=== PATIENT | female | born 1965 | race Caucasian/White ===

== ENCOUNTER → 2016-12-02 | Day surgery (SDC) | payer OTHER ==
[~2016-12-02] MED LIST: CALC200T3 PO; FENTANYL PF 100 MCG/2 ML VIAL. IV PRN; IBUP100O7 PO; IV RINGERS,LACTATED 1000ML 1,000 ML IV SCH; LIDOCAINE 1% 1 ML SYRINGE. ID PRN; LIDOCAINE 2% PF Vial for OR 5 ML VIAL. ONE; LISI-334 PO; MIDAZOLAM HCL 2 MG/2 ML VIAL. IV PRN; MULT1TAB6 PO; PANT40TA5 PO; PROPOFOL 40 ML IV ONE
[2016-12-02 15:09] VITALS: BP 180/80
--- NOTE | 2016-12-02 21:16 | HP ---
ADMIT DATE: 12/02/2016 REFERRING PHYSICIAN: Allyson Landaverde MD HISTORY OF PRESENT ILLNESS: A 51-year-old male with past medical history significant for anxiety, depression, reflux, fibromyalgia, hyperlipidemia, palpitations, peptic ulcer disease, seen with heme-positive stools. He has also noticed some bright red blood per rectum over the past several weeks which last a week at a time without pain. There has been no change in bowel habits, diarrhea, constipation, change in weight or appetite. No family history of colon cancers noted. He has had a colonoscopy approximately 3 years ago, which was unrevealing at that time. With continued symptoms, he requests additional evaluation. PAST MEDICAL HISTORY: Significant for anxiety, reflux, hypertension and hyperlipidemia. ALLERGIES: None. MEDICATIONS: Calcium, ibuprofen, lisinopril and pantoprazole. PAST SURGICAL HISTORY: Status post hiatal hernia surgery, tonsillectomy and tubal ligation. REVIEW OF SYSTEMS: Per old records. PHYSICAL EXAMINATION: GENERAL: Reveals a well-nourished, well-developed female who is alert, conversant, in no acute distress. VITAL SIGNS: Temperature 98.5, pulse 90, respiratory rate is 18. HEENT: Normocephalic and atraumatic head. Pupils and extraocular muscles not tested. Sclerae anicteric. NECK: Supple. LUNGS: Clear. CARDIOVASCULAR: Reveals an S1, S2 without S3, S4 or appreciable murmur. ABDOMEN: Reveals appreciable hepatosplenomegaly. EXTREMITIES: Reveals no cyanosis, clubbing or edema. IMPRESSION: Rectal bleeding with heme-positive stool, etiology is to be determined. Differential includes colon polyps, malignancy, arteriovenous malformation, irritable bowel syndrome, fissures and hemorrhoids. I have therefore recommended the patient proceed with colonoscopy. The patient is willing to proceed. I would like to thank Allyson Landaverde for allowing us to consult and participate in the patient's care. CRISTEL LEVINE MD DR: PIYUSH/april JOB#: [id number] / [id number] ALLYSON Reyna MD
--- NOTE | 2016-12-06 13:22 | PATHOLOGY ---
PATHOLOGY REPORT * * * * * * * * FINAL DIAGNOSIS: A. Colorectal biopsies, rectal polyps: - Hyperplastic polyps. B. Colon biopsies, sigmoid colon polyp: - Tubulovillous adenoma. COMMENT: There is no high grade dysplasia or evidence of malignancy. (JPM:csd; d/t: 12/06/2016) REPORT ELECTRONICALLY SIGNED BY: Yakov Milton M.D. DATE/TIME: 12/06/2016 13:21 * * * * * * * * GROSS PATHOLOGY: A. Received in formalin labeled "Kristi Jones, rectum polyps," are three segments of bowen soft tissue measuring 0.7 x 0.7 x 0.1 cm in aggregate dimensions and ranging from 0.3 to 0.5 cm in maximum dimension. The specimen is submitted entirely in cassette A1. B. Received in formalin labeled "Kristi Jones, sigmoid polyp biopsy," are five segments of bowen soft tissue measuring 1.1 x 1.1 x 0.2 cm in aggregate dimensions and ranging from 0.3 to 0.5 cm in maximum dimension. The specimen is submitted entirely in cassette B1. (CAA; 12/03/2016) INITIAL CPT CODE(S): A; 09338 B; 65085 Professional services performed by [facility] [place] [address] Technical services performed by [facility] at [address] [place] [address]. SPECIMEN(S) RECEIVED: A.Rectum polyps B.Sigmoid polyp biopsy CLINICAL HISTORY: GI bleed PATIENT: KRISTI JONES /AGE: 401/05/1965 (Age: 51) PATIENT #: [id number] ALT CASE #: SPECIMEN COLLECTION DATE: 12/02/2016 SPECIMEN RECEIVED DATE: 12/03/2016 [facility] - [address] [place] [address] - PHONE: [phone] * * * END OF REPORT * * *
== END | disposition home or self-care (01) ==
LOC: ENDOS 12:25
PROVIDERS: ATTEND Internal Medicine Gastroenterology
DX: K64.0 First degree hemorrhoids (principal); K62.1 Rectal polyp; D12.5 Benign neoplasm of sigmoid colon; K92.1 Melena; K57.30 Diverticulosis of large intestine without perforation or abscess without bleeding; E78.00 Pure hypercholesterolemia, unspecified; I10 Essential (primary) hypertension; E66.9 Obesity, unspecified; M19.90 Unspecified osteoarthritis, unspecified site; Z98.51 Tubal ligation status
CPT/HCPCS: 45380; 45381; J2704

== ENCOUNTER 2017-02-24 06:53 | Inpatient (IN) | payer OTHER ==
[~2017-02-24] VITALS: Ht 172.7 cm; Wt 82.6 kg
[2017-02-24] VITALS (8 sets, daily range): BP systolic 137–169; BP diastolic 82–92
[~2017-02-24 06:53] MED LIST changes: -FENTANYL PF 100 MCG/2 ML VIAL. IV PRN; +IBUP-1027 PO; +IBUP100O24 PO; -IBUP100O7 PO; -IV RINGERS,LACTATED 1000ML 1,000 ML IV SCH; -LIDOCAINE 1% 1 ML SYRINGE. ID PRN; -LIDOCAINE 2% PF Vial for OR 5 ML VIAL. ONE; -MIDAZOLAM HCL 2 MG/2 ML VIAL. IV PRN; -PROPOFOL 40 ML IV ONE
[2017-02-24] MEDS ORDERED: PROCHLORPERAZINE 10 MG/2 ML VIAL. IV PRN (07:00)
[2017-02-24] MEDS ORDERED: fentaNYL PF VIAL 100 MCG/2 ML VIAL IV PRN (07:00)
[2017-02-24] MEDS ORDERED: ONDANSETRON PF 4 MG/2 ML VIAL. IV PRN ×2 (07:00→10:15)
[2017-02-24] MEDS ORDERED: LIDOCAINE 1% 1 ML SYRINGE. ID PRN (07:00)
[2017-02-24] MEDS ORDERED: IV RINGERS,LACTATED 1000ML 1,000 ML IV SCH (07:00)
[2017-02-24] MEDS ORDERED: MORPHINE SULFATE 2 MG/ML DISP.SYRIN. IV PRN ×2 (07:00→10:15)
[2017-02-24] MEDS ORDERED: PROPOFOL 20 ML IV ONE (07:59)
[2017-02-24] MEDS ORDERED: ONDANSETRON PF 4 MG/2 ML VIAL. ONE (07:59)
[2017-02-24] MEDS ORDERED: DEXAMETHASONE SOD PHOS 20 MG/5 ML VIAL. ONE (07:59)
[2017-02-24] MEDS ORDERED: LIDOCAINE 2% PF Vial for OR 5 ML VIAL. ONE (07:59)
[2017-02-24] MEDS ORDERED: fentaNYL PF VIAL 100 MCG/2 ML VIAL ONE ×2 (07:59→09:49)
[2017-02-24] MEDS ORDERED: ROCURONIUM 50 MG/5 ML VIAL. ONE (08:00)
[2017-02-24] MEDS ORDERED: KETAMINE HCL 500 MG/10 ML VIAL. ONE (08:00)
[2017-02-24] MEDS ORDERED: MIDAZOLAM HCL/PF 2 MG/2 ML VIAL. ONE (08:00)
[2017-02-24] MEDS ORDERED: GLYCOPYRROLATE 1 MG/5 ML VIAL. ONE ×2 (08:03→11:36)
[2017-02-24] MEDS ORDERED: DESFLURANE > 120 MINUTES IH ONE (08:21)
[2017-02-24] MEDS ORDERED: NEOSTIGMINE METHYLSULFATE 5 MG/5 ML SYRINGE. ONE ×2 (09:52→11:36)
[2017-02-24] MEDS: IV DEXTROSE 5%-LACT RINGERS 1,000 ML IV SCH ×2 (10:01→23:58)
--- NOTE | 2017-02-24 10:01 | PDOC ---
BRIEF OPERATIVE NOTE Date: Feb 24, 2017 Pre-Op Diagnosis Tubilovillous Sigmoid polyp Post-Op Diagnosis Same Procedure Performed Sigmoidcolectomy Surgeon Gilberto Cameron Anesthesia Type: General Blood Loss 30ml Specimens Obtained sigmoid colon Findings as above, area of tattoo removed Complications None ANGELA GARDNER MD Feb 24, 2017 10:01
[2017-02-24] MEDS ORDERED: 0.9 % SODIUM CHLORIDE 10 ML DISP.SYRIN. IV PRN (10:15)
[2017-02-24] MEDS: fentaNYL PF VIAL 100 MCG/2 ML VIAL IV PRN ×3 (10:28→11:16)
[2017-02-24] MEDS: HYDROmorphone 2 MG/ML VIAL IV PRN ×2 (10:51→11:01)
[2017-02-24] MEDS: KETOROLAC 15 MG/ML VIAL. IV SCH ×3 (11:12→23:58)
[2017-02-24] MEDS: NICOTINE 21MG PATCH. TD SCH (14:36)
[2017-02-24] MEDS: LISINOPRIL 20 MG TABLET PO SCH (14:38)
[2017-02-25 03:44] VITALS: BP 126/73
[2017-02-25 05:05] LABS: BASO % 0 % (0-3); EOS % 0 % (0-3); HEMATOCRIT 42.2 % (36.0-47.0); HEMOGLOBIN 14.1 g/dL (12.0-15.5); LYMPH # 1.6 x10^3/uL (1.0-4.8); LYMPH % 11 % (24-48); MEAN CORPUSCULAR HEMOGLOBIN 34 pg (25-35); MEAN CORPUSCULAR HGB CONC 33 g/dL (31-37); MEAN CORPUSCULAR VOLUME 101 fL (79-100); MONO % 8 % (0-9); NEUT % 81 % (31-73); PLATELET COUNT 232 x10^3/uL (140-400); RED BLOOD COUNT 4.16 x10^6/uL (3.50-5.40); RED CELL DISTRIBUTION WIDTH 12.5 % (11.5-14.5); WHITE BLOOD COUNT 14.5 x10^3/uL (4.0-11.0)
[2017-02-25] MEDS: KETOROLAC 15 MG/ML VIAL. IV SCH ×4 (05:37→23:56)
[2017-02-25 07:00] VITALS: BP 149/86
[2017-02-25] MEDS: NICOTINE 21MG PATCH. TD SCH (08:41)
[2017-02-25] MEDS: LISINOPRIL 20 MG TABLET PO SCH (08:42)
--- NOTE | 2017-02-25 09:15 | ACF ---
Admission Forms Criteria PAIN MANAGEMENT GR Clinical Indications for Admission to Inpatient Care (Place 'X' for any and all applicable criteria): Hospital admission is needed for appropriate care of the patient because of 1 or more of the following are present (1)(2)(3)(4)(5): [X]I. Severe pain requiring acute inpatient management as indicated by 1 or more of the following (2)(5)(10): [X]a) Continuous or frequent (eg, every 2 to 4 hours) parenteral analgesics required [A] [ ]b) Necessity (ie, alternative approaches not effective) for analgesic regimen that can only be performed or initiated in inpatient setting [ ]II. Pain causing debilitation to the point of inability to function or be supported at any other level of care [ ]III. Severe side effects from pain medications as indicated by ANY ONE of the following (12)(13)(14)(15): [ ]a) Uncontrollable seizures [ ]b) Cardiac arrhythmias of immediate concern [ ]c) Dehydration that is severe or persistent [ ]d) Vomiting that is severe or persistent [ ]e) Altered mental status that is severe or persistent [ ]f) Obstipation with inadequate GI function to maintain nutrition The original [employer] content created by [employer] has been revised. The portions of the content which have been revised are identified through the use of italic text or in bold, and [employer] has neither reviewed nor approved the modified material. All other unmodified content is copyright [employer]. Please see references footnoted in the original [employer] edition 2016 Admission Criteria Met?: Yes JAHAIRA LUCAS Feb 25, 2017 09:15
--- NOTE | 2017-02-25 09:49 | PDOC ---
SURGICAL PROGRESS NOTE Subjective + flatus no void yet since trujillo out Vital Signs Vital Signs Date Time Temp Pulse Resp B/P (MAP) Pulse Ox O2 Delivery O2 Flow Rate FiO2 02/25/17 08:42 60 126/73 02/25/17 07:00 98.3 20 97 Room Air 98.3 02/24/17 13:50 2.0 I&O Intake and Output 02/25/17 07:00 Intake Total 3455 ml Output Total 625 ml Balance 2830 ml Intake Oral 1160 ml IV Total 2295 ml Output Urine Total 575 ml Estimated Blood Loss 50 ml General: Alert, Oriented X3, Cooperative, No acute distress Abdomen: Soft, Other (dressing dry) Labs Laboratory Tests Test 02/25/17 04:25 White Blood Count 14.5 x10^3/uL (4.0-11.0) Red Blood Count 4.16 x10^6/uL (3.50-5.40) Hemoglobin 14.1 g/dL (12.0-15.5) Hematocrit 42.2 % (36.0-47.0) Mean Corpuscular Volume 101 fL (79-100) Mean Corpuscular Hemoglobin 34 pg (25-35) Mean Corpuscular Hemoglobin Concent 33 g/dL (31-37) Red Cell Distribution Width 12.5 % (11.5-14.5) Platelet Count 232 x10^3/uL (140-400) Neutrophils (%) (Auto) 81 % (31-73) Lymphocytes (%) (Auto) 11 % (24-48) Monocytes (%) (Auto) 8 % (0-9) Eosinophils (%) (Auto) 0 % (0-3) Basophils (%) (Auto) 0 % (0-3) Neutrophils # (Auto) 11.7 x10^3uL (1.8-7.7) Lymphocytes # (Auto) 1.6 x10^3/uL (1.0-4.8) Monocytes # (Auto) 1.2 x10^3/uL (0.0-1.1) Eosinophils # (Auto) 0.0 x10^3/uL (0.0-0.7) Basophils # (Auto) 0.0 x10^3/uL (0.0-0.2) Laboratory Tests Test 02/25/17 04:25 White Blood Count 14.5 x10^3/uL (4.0-11.0) Red Blood Count 4.16 x10^6/uL (3.50-5.40) Hemoglobin 14.1 g/dL (12.0-15.5) Hematocrit 42.2 % (36.0-47.0) Mean Corpuscular Volume 101 fL (79-100) Mean Corpuscular Hemoglobin 34 pg (25-35) Mean Corpuscular Hemoglobin Concent 33 g/dL (31-37) Red Cell Distribution Width 12.5 % (11.5-14.5) Platelet Count 232 x10^3/uL (140-400) Neutrophils (%) (Auto) 81 % (31-73) Lymphocytes (%) (Auto) 11 % (24-48) Monocytes (%) (Auto) 8 % (0-9) Eosinophils (%) (Auto) 0 % (0-3) Basophils (%) (Auto) 0 % (0-3) Neutrophils # (Auto) 11.7 x10^3uL (1.8-7.7) Lymphocytes # (Auto) 1.6 x10^3/uL (1.0-4.8) Monocytes # (Auto) 1.2 x10^3/uL (0.0-1.1) Eosinophils # (Auto) 0.0 x10^3/uL (0.0-0.7) Basophils # (Auto) 0.0 x10^3/uL (0.0-0.2) Problem List s/p sigmoidectomy full liquids today ambulate Problems: JOHN CASTELLON APRN Feb 25, 2017 09:49
[2017-02-25 11:00] VITALS: BP 145/98
[2017-02-25] MEDS: oxyCODONE/APAP 5/325 1 TAB TABLET PO PRN ×3 (12:22→22:35)
[2017-02-25] MEDS: IV DEXTROSE 5%-LACT RINGERS 1,000 ML IV SCH (14:50)
[2017-02-25 15:00] VITALS: BP 143/86
[2017-02-25 19:15] VITALS: BP 138/88
[2017-02-25 23:27] VITALS: BP 174/108
[2017-02-26] VITALS (7 sets, daily range): BP systolic 131–170; BP diastolic 75–104
[2017-02-26] MEDS: IV DEXTROSE 5%-LACT RINGERS 1,000 ML IV SCH (03:18)
[2017-02-26] MEDS: oxyCODONE/APAP 5/325 1 TAB TABLET PO PRN ×4 (03:18→18:04)
[2017-02-26] MEDS: KETOROLAC 15 MG/ML VIAL. IV SCH (05:46)
[2017-02-26] MEDS: NICOTINE 21MG PATCH. TD SCH (08:51)
[2017-02-26] MEDS: LISINOPRIL 20 MG TABLET PO SCH (08:53)
--- NOTE | 2017-02-26 09:10 | PDOC ---
JOHN CASTELLON INSURANCE INSTRUCTOR 02/26/17 0910: SURGICAL PROGRESS NOTE Subjective no n/v, does not like the liquids + flatus cough and felt a pop, worried she ripped something Vital Signs Vital Signs Date Time Temp Pulse Resp B/P (MAP) Pulse Ox O2 Delivery O2 Flow Rate FiO2 02/26/17 08:53 62 168/93 02/26/17 08:51 Room Air 02/26/17 07:00 97.7 20 97 97.7 02/25/17 22:35 2.0 I&O Intake and Output 02/26/17 07:00 Intake Total 3400 ml Output Total 700 ml Balance 2700 ml Intake Oral 1820 ml IV Total 1580 ml Output Urine Total 700 ml # Voids 3 General: Alert, Oriented X3, Cooperative, No acute distress Abdomen: Soft (ND, incisional TTP, incision c/d/i, no erythema ) Labs Laboratory Tests Test 02/25/17 04:25 White Blood Count 14.5 x10^3/uL (4.0-11.0) Red Blood Count 4.16 x10^6/uL (3.50-5.40) Hemoglobin 14.1 g/dL (12.0-15.5) Hematocrit 42.2 % (36.0-47.0) Mean Corpuscular Volume 101 fL (79-100) Mean Corpuscular Hemoglobin 34 pg (25-35) Mean Corpuscular Hemoglobin Concent 33 g/dL (31-37) Red Cell Distribution Width 12.5 % (11.5-14.5) Platelet Count 232 x10^3/uL (140-400) Neutrophils (%) (Auto) 81 % (31-73) Lymphocytes (%) (Auto) 11 % (24-48) Monocytes (%) (Auto) 8 % (0-9) Eosinophils (%) (Auto) 0 % (0-3) Basophils (%) (Auto) 0 % (0-3) Neutrophils # (Auto) 11.7 x10^3uL (1.8-7.7) Lymphocytes # (Auto) 1.6 x10^3/uL (1.0-4.8) Monocytes # (Auto) 1.2 x10^3/uL (0.0-1.1) Eosinophils # (Auto) 0.0 x10^3/uL (0.0-0.7) Basophils # (Auto) 0.0 x10^3/uL (0.0-0.2) Assessment/Plan s/p sigmoid resection advance diet DC fluids if doing well possible home in AM Problems: CRISTEL HILL MD 02/26/17 1418: SURGICAL PROGRESS NOTE Assessment/Plan Agree with above Problems: JOHN CASTELLON APRN Feb 26, 2017 09:10 CRISTEL HILL MD Feb 26, 2017 14:18
--- NOTE | 2017-02-26 14:27 | RAD ---
Indication left lower quadrant pain and burning. A limited examination of the abdomen was performed. Grayscale images were obtained. The examination was targeted to the left lower quadrant. No definite abnormality was seen. No definite soft tissue abnormality or underlying abscess was apparent. IMPRESSION: Normal targeted abdominal ultrasound exam
[2017-02-26] MEDS: HYDROcodone/APAP 5/325MG 1 TAB TABLET PO PRN (22:45)
[2017-02-27 03:00] VITALS: BP 162/89
[2017-02-27] MEDS: HYDROcodone/APAP 5/325MG 1 TAB TABLET PO PRN ×5 (05:47→23:05)
[2017-02-27 07:49] VITALS: BP 192/109
[2017-02-27] MEDS: LISINOPRIL 20 MG TABLET PO SCH (08:42)
[2017-02-27] MEDS: NICOTINE 21MG PATCH. TD SCH (08:43)
--- NOTE | 2017-02-27 08:50 | PDOC ---
JOHN CASTELLON APRN 02/27/17 0850: SURGICAL PROGRESS NOTE Subjective tolerating diet no emesis lortab makes her less loopy, although reports pain better, tearful when I removed her dressing Vital Signs Vital Signs Date Time Temp Pulse Resp B/P (MAP) Pulse Ox O2 Delivery O2 Flow Rate FiO2 02/27/17 08:45 Room Air 02/27/17 08:42 66 192/109 02/27/17 07:49 97.9 18 94 97.9 I&O Intake and Output 02/27/17 07:00 Intake Total 1790 ml Output Total 2400 ml Balance -610 ml Intake Oral 360 ml IV Total 1430 ml Output Urine Total 2400 ml General: Alert, Oriented X3, Cooperative, No acute distress Abdomen: Soft, Other (incision c/d/i, no erythema, ND, incisional TTP) Problem List s/p sigmoid resection diet as tolerated ambulate pain control, improved HTN, uncontrolled on her home med, ?pain/anxiety contributing--will ask IPC to see she was concerned yesterday to abd on left swelling--I checked US which is normal Problems: CRISTEL HILL MD 02/28/17 0704: SURGICAL PROGRESS NOTE Assessment/Plan Reviewed, agree with above Problems: JOHN CASTELLON APRN Feb 27, 2017 08:50 CRISTEL HILL MD Feb 28, 2017 07:04
[2017-02-27 11:42] VITALS: BP 139/87
[2017-02-27 15:37] VITALS: BP 155/91
[2017-02-27] MEDS ORDERED: CALCIUM CARBONATE 500 MG TAB.CHEW PO PRN ×2 (18:45→19:00)
[2017-02-27 19:00] VITALS: BP 166/98
[2017-02-27] MEDS ORDERED: LISINOPRIL 10 MG TABLET PO ONE (21:15)
[2017-02-27 23:00] VITALS: BP 161/103
[2017-02-28 03:00] VITALS: BP 162/93
[2017-02-28] MEDS: HYDROcodone/APAP 5/325MG 1 TAB TABLET PO PRN ×5 (04:44→22:37)
[2017-02-28 07:00] VITALS: BP 182/86
[2017-02-28] MEDS ORDERED: hydrALAZINE 20 MG/ML VIAL. IVP PRN ×2 (10:00→13:00)
--- NOTE | 2017-02-28 10:02 | PDOC ---
SURGICAL PROGRESS NOTE Subjective Doing ok, tolerating diet. Has not had a BM and feeling bloated Vital Signs Vital Signs Date Time Temp Pulse Resp B/P (MAP) Pulse Ox O2 Delivery O2 Flow Rate FiO2 02/28/17 07:00 98.4 52 18 182/86 (118) 96 Room Air 98.4 02/27/17 23:05 2.0 I&O Intake and Output 02/28/17 07:00 Intake Total 960 ml Output Total 1050 ml Balance -90 ml Intake Oral 960 ml Output Urine Total 1050 ml # Voids 4 PATIENT HAS A FREEDMAN: No General: Alert, Oriented X3, Cooperative, mild distress Abdomen: Normal bowel sounds, Soft, Other (mild TTP at incision, c/d/i ) Assessment/Plan S/P sigmoid colectomy for large polyp Start Miraladragan, OK to D/C home after BM Problems: ANGELA GARDNER MD Feb 28, 2017 10:02
[2017-02-28] MEDS: PANTOPRAZOLE 40 MG TABLET.DR. PO SCH (10:17)
[2017-02-28] MEDS: NICOTINE 21MG PATCH. TD SCH (10:18)
[2017-02-28] MEDS: LISINOPRIL 20 MG TABLET PO SCH (10:18)
[2017-02-28] MEDS: POLYETHYLENE GLYCOL 3350 17 GM PACKET. PO SCH (10:22)
[2017-02-28 11:00] VITALS: BP 162/97
--- NOTE | 2017-02-28 12:53 | PDOC2 ---
CONSULT Date of Consult Date of Consult DATE: 02/28/17 TIME: 12:49 Reason for Consult Reason for Consult: HTN Referring Physician Referring Physician: DR. Macias Identification/Chief Complaint Chief Complaint Tubilovillous Sigmoid polyp Source Source: Chart review, Patient History of Present Illness Reason for Visit: 52yo F, HTN, underwent sigmoidcolectomy on 02/24 for Tubilovillous Sigmoid polyp. pt currently on GI soft diet, no N/V, has flatus, no BM since sx. otherwise feels good. IPC was called for HTN control. Pt's BP has been high in the past 3 days, as per pt, she has been taking lisinopril for about 3 months, but BP has been high for a few weeks at home. no ambulate much 2/2 abd pain. Past Medical History Cardiovascular: HTN Past Surgical History Past Surgical History: No pertinent history Social History No ALCOHOL: none Drugs: None Lives: with Family Domestic Violence: Neg Current Medications Current Medications Current Medications Ondansetron HCl (Zofran) 4 mg PRN Q6HRS PRN IV NAUSEA/VOMITING; Start 02/24/17 at 07:00; Stop 02/25/17 at 06:59; Status DC Fentanyl Citrate (Fentanyl 2ml Vial) 25 mcg PRN Q5MIN PRN IV MILD PAIN; Start 02/24/17 at 07:00; Stop 02/25/17 at 06:59; Status DC Fentanyl Citrate (Fentanyl 2ml Vial) 50 mcg PRN Q5MIN PRN IV MODERATE PAIN Last administered on 02/24/17 11:16; Start 02/24/17 at 07:00; Stop 02/25/17 at 06: 59; Status DC Morphine Sulfate 1 mg PRN Q10MIN PRN IV SEVERE PAIN; Start 02/24/17 at 07:00; Stop 02/25/17 at 06:59; Status DC Ringer's Solution 1,000 ml @ 0 mls/hr Q0M IV Last administered on 02/24/17 07: 20; Start 02/24/17 at 07:00; Stop 02/24/17 at 18:59; Status DC Lidocaine HCl 2 ml PRN 1X PRN ID PRIOR TO IV START; Start 02/24/17 at 07:00; Stop 02/25/17 at 06:59; Status DC Hydromorphone HCl (Dilaudid) 0.5 mg PRN Q10MIN PRN IV SEV PAIN, Second choice Last administered on 02/24/17 11:01; Start 02/24/17 at 07:00; Stop 02/25/17 at 06: 59; Status DC Prochlorperazine Edisylate (Compazine) 5 mg PACU PRN PRN IV NAUSEA, MRX1; Start 02/24/17 at 07:00; Stop 02/25/17 at 06:59; Status DC Cefazolin Sodium/ Dextrose 50 ml @ 100 mls/hr 1X ONCE IV Last administered on 02/24/17 08:25; Start 02/24/17 at 07:00; Stop 02/24/17 at 07:29; Status DC Dexamethasone Sodium Phosphate (Decadron) 20 mg STK-MED ONCE .ROUTE ; Start 02/24 at 07:59; Stop 02/24/17 at 08:00; Status DC Ondansetron HCl (Zofran) 4 mg STK-MED ONCE .ROUTE ; Start 02/24/17 at 07:59; Stop 02/24/17 at 08:00; Status DC Propofol 20 ml @ As Directed STK-MED ONCE IV ; Start 02/24/17 at 07:59; Stop 02/24 at 08:00; Status DC Lidocaine HCl (Lidocaine Pf 2% Vial) 5 ml STK-MED ONCE .ROUTE ; Start 02/24/17 at 07:59; Stop 02/24/17 at 08:00; Status DC Fentanyl Citrate (Fentanyl 2ml Vial) 100 mcg STK-MED ONCE .ROUTE ; Start at 07:59; Stop 02/24/17 at 08:00; Status DC Midazolam HCl (Versed) 2 mg STK-MED ONCE .ROUTE ; Start 02/24/17 at 08:00; Stop 02/24/17 at 08:01; Status DC Ketamine HCl 500 mg STK-MED ONCE .ROUTE ; Start 02/24/17 at 08:00; Stop 02/24/17 at 08:01; Status DC Rocuronium [place] (Zemuron) 50 mg STK-MED ONCE .ROUTE ; Start 02/24/17 at 08:00 ; Stop 02/24/17 at 08:01; Status DC Glycopyrrolate (Robinul) 1 mg STK-MED ONCE .ROUTE ; Start 02/24/17 at 08:03; Stop 02/24/17 at 08:04; Status DC Desflurane (Suprane) 90 ml STK-MED ONCE IH ; Start 02/24/17 at 08:21; Stop at 08:22; Status DC Fentanyl Citrate (Fentanyl 2ml Vial) 100 mcg STK-MED ONCE .ROUTE ; Start at 09:49; Stop 02/24/17 at 09:50; Status DC Neostigmine Methylsulfate 5 mg STK-MED ONCE .ROUTE ; Start 02/24/17 at 09:52; Stop 02/24/17 at 09:53; Status DC Sodium Chloride (Normal Saline Flush) 3 ml QSHIFT PRN IV AFTER MEDS AND BLOOD DRAWS; Start 02/24/17 at 10:15 Morphine Sulfate 2 mg PRN Q3HRS PRN IV PAIN Last administered on 02/24/17 22:37 ; Start 02/24/17 at 10:15 Oxycodone/ Acetaminophen (Percocet 5/325) 1 tab PRN Q4HRS PRN PO MILD PAIN, 1ST CHOICE Last administered on 02/26/17 08:51; Start 02/24/17 at 10:15; Stop at 07:32; Status DC Oxycodone/ Acetaminophen (Percocet 5/325) 2 tab PRN Q4HRS PRN PO MODERATE PAIN , SEVERE PAIN Last administered on 02/26/17 18:04; Start 02/24/17 at 10:15; Stop 02/27/17 at 07:32; Status DC Ketorolac Tromethamine (Toradol) 15 mg Q6HRS IV Last administered on 02/26/17 05:46; Start 02/24/17 at 12:00; Stop 02/26/17 at 11:59; Status DC Ondansetron HCl (Zofran) 4 mg PRN Q6HRS PRN IV NAUSEA; Start 02/24/17 at 10:15 Dextrose/Lactated Ringer's 1,000 ml @ 75 mls/hr [id number] IV Last administered on 02/26/17 03:18; Start 02/24/17 at 10:01; Stop 02/26/17 at 09:11; Status DC Nicotine (Nicoderm Cq 21mg) 1 patch DAILY TD Last administered on 02/28/17 10: 18; Start 02/24/17 at 12:00 Glycopyrrolate (Robinul) 1 mg STK-MED ONCE .ROUTE ; Start 02/24/17 at 11:36; Stop 02/24/17 at 11:37; Status DC Neostigmine Methylsulfate 5 mg STK-MED ONCE .ROUTE ; Start 02/24/17 at 11:36; Stop 02/24/17 at 11:37; Status DC Lisinopril (Prinivil) 20 mg DAILY PO Last administered on 02/27/17 08:42; Start 02/24/17 at 14:00; Stop 02/28/17 at 09:54; Status DC Acetaminophen/ Hydrocodone Bitart (Lortab 5/325) 1 tab PRN Q4HRS PRN PO MODERATE PAIN Last administered on 02/28/17 10:17; Start 02/26/17 at 22:30 Acetaminophen/ Hydrocodone Bitart (Lortab 5/325) 2 tab PRN Q4HRS PRN PO SEVERE PAIN; Start 02/26/17 at 22:30 Calcium Carbonate/ Glycine (Tums) 250 mg PRN Q2HRS PRN PO INDIGESTION Last administered on 02/27/17 18:44; Start 02/27/17 at 18:45; Stop 02/27/17 at 18:47 ; Status DC Pantoprazole Sodium (Protonix) 40 mg DAILY PO Last administered on 02/28/17 10 :17; Start 02/28/17 at 09:00 Calcium Carbonate/ Glycine (Tums) 500 mg PRN Q2HRS PRN PO INDIGESTION; Start at 19:00 Lisinopril (Prinivil) 10 mg 1X ONCE PO Last administered on 02/27/17 21:34; Start 02/27/17 at 21:15; Stop 02/27/17 at 21:16; Status DC Lisinopril (Prinivil) 40 mg DAILY PO Last administered on 02/28/17 10:18; Start 02/28/17 at 10:30 Hydralazine HCl (Apresoline) 10 mg PRN Q4HRS PRN IVP ELEVATED BP, SEE COMMENTS ; Start 02/28/17 at 10:00 Polyethylene Glycol (miraLAX PACKET) 17 gm DAILY PO Last administered on t 10:22; Start 02/28/17 at 10:30 Active Scripts Active Reported Ibuprofen 400 Mg Tablet 200 Mg PO PRN Q6HRS PRN Tums (Calcium Carbonate) 200 Mg Tab.chew 200 Mg PO PRN PRN Pantoprazole Sodium 40 Mg Tablet.dr 1 Tab PO DAILY Lisinopril 20 Mg Tablet 1 Tab PO DAILY Allergies Allergies: Coded Allergies: No Known Drug Allergies (Unverified , 02/24/17) Physical Exam General: Alert, Oriented X3, Cooperative HEENT: Atraumatic, PERRLA Lungs: Clear to auscultation Heart: Regular rate, Normal S1, Normal S2 Abdomen: Normal bowel sounds, Soft, Other (clean sx wound, mild tenderness) Extremities: No clubbing, No cyanosis Skin: No rashes Neuro: Normal gait MUSCULOSKELETAL: No joint tenderness Vitals VITALS Vital Signs Date Time Temp Pulse Resp B/P (MAP) Pulse Ox O2 Delivery O2 Flow Rate FiO2 02/28/17 11:43 Room Air 02/28/17 11:00 97.9 58 20 162/97 (118) 96 97.9 02/27/17 23:05 2.0 Assessment/Plan Assessment/Plan 1. Tubilovillous Sigmoid polyp post sigmoidcolectomy 2. HTN 3. constipation plan: fu with sx, on gi soft diet, waiting for BM. advise pt to ambulate when tolerate increase lisinopril to 40mg daily, hydralazine prn labs tmr on prum juice for constipation. dc soon as per sx. thanks for asking IPC for consult SUZANNE SHETTY MD Feb 28, 2017 12:53
[2017-02-28 15:00] VITALS: BP 152/83
--- NOTE | 2017-02-28 16:37 | PATHOLOGY ---
PATHOLOGY REPORT * * * * * * * * FINAL DIAGNOSIS: Segment of colon with attached mesocolon, sigmoid colon segmental resection: - Pedunculated tubulovillous adenoma, predominantly tubular, measuring 1.5 cm. - Previous biopsy site changes. - Hyperplastic polyp. - Single mesocolic lymph node negative for tumor. COMMENT: Sections of the sigmoid colectomy reveal a pedunculated tubulovillous adenoma which is predominantly tubular. There is no high grade dysplasia or evidence of malignancy. There are previous biopsy site changes with focal displacement of adenomatous epithelium. (JPM:mik; d/t: 02/28/2017) REPORT ELECTRONICALLY SIGNED BY: Yakov Milton M.D. DATE/TIME: 02/28/2017 16:36 * * * * * * * * GROSS PATHOLOGY: The specimen is received in formalin labeled "Ochoa Beaman, sigmoid colon, stitch at distal end". Received is an oriented segment of colon measuring 3.5 cm in length by 3.1 cm in diameter. Both margins are stapled closed and there is a suture attached to one margin designating this as the distal margin. The serosal surface is pink-bowen in appearance with tattooing present at the mid aspect of the specimen. The attached pericolic fat measures 1.5 cm in thickness. The specimen is opened along the antimesenteric line to reveal a pedunculated red-brown polyp measuring 1.5 x 1.1 cm with an apparent 1.0 cm stalk which is located 0.4 cm from the proximal margin and 0.5 cm from the distal margin. The polyp is removed and the new margin is inked black. The remainder the mucosa is pale bowen in appearance with normal architectural folds. No additional nodules or lesions are noted grossly. Thorough sectioning and palpation of the attached pericolic fat reveals a single lymph node measuring 0.5 cm in maximum dimensions. The specimen is submitted representatively as follows: A1 proximal margin, en face A2 distal margin, en face A3-A5 entire polyp A6 normal mucosa A7 one bisected lymph node. (CAA:JPM:mik; 02/26/2017) INITIAL CPT CODE(S): 11982 Professional services performed by [facility] at [address] [address] Technical services performed by [facility] at [address] [place] [address], [address], [place] [address]. Dr. Allyson Landaverde fax: SPECIMEN(S) RECEIVED: A.Sigmoid colon CLINICAL HISTORY: Sigmoid colectomy PATIENT: OCHOA STEPHEN /AGE: 401/05/1965 (Age: 52) PATIENT #: [id number] ALT CASE #: SPECIMEN COLLECTION DATE: 02/24/2017 SPECIMEN RECEIVED DATE: 02/24/2017 [facility] - [id number] [place] [address] - PHONE: [phone] * * * END OF REPORT * * *
[2017-02-28] MEDS ORDERED: DOCUSATE SODIUM 100 MG CAPSULE. PO PRN (18:00)
[2017-02-28 19:00] VITALS: BP 183/97
[2017-02-28] MEDS ORDERED: MAGNESIUM HYDROXIDE 2,400 MG/30 ML ORAL.SUSP. PO PRN (21:45)
[2017-02-28] MEDS: POLYETHYLENE GLYCOL 3350 17 GM PACKET. PO PRN (22:34)
[2017-02-28 22:59] VITALS: BP 175/112
[2017-03-01] MEDS: POLYETHYLENE GLYCOL 3350 17 GM PACKET. PO PRN (00:56)
[2017-03-01 03:00] VITALS: BP 178/98
[2017-03-01 04:58] LABS: BASO # 0.1 x10^3/uL (0.0-0.2); BASO % 1 % (0-3); EOS % 4 % (0-3); HEMATOCRIT 42.7 % (36.0-47.0); HEMOGLOBIN 14.4 g/dL (12.0-15.5); LYMPH # 2.6 x10^3/uL (1.0-4.8); LYMPH % 29 % (24-48); MEAN CORPUSCULAR HEMOGLOBIN 34 pg (25-35); MEAN CORPUSCULAR HGB CONC 34 g/dL (31-37); MEAN CORPUSCULAR VOLUME 101 fL (79-100); MONO % 9 % (0-9); NEUT % 57 % (31-73); PLATELET COUNT 229 x10^3/uL (140-400); RED BLOOD COUNT 4.24 x10^6/uL (3.50-5.40); RED CELL DISTRIBUTION WIDTH 12.2 % (11.5-14.5); WHITE BLOOD COUNT 8.8 x10^3/uL (4.0-11.0)
[2017-03-01 05:18] LABS: CALCIUM 8.8 mg/dL (8.5-10.1); CREATININE 0.8 mg/dL (0.6-1.0); POTASSIUM 4.4 mmol/L (3.5-5.1)
[2017-03-01 07:00] VITALS: BP 145/84
[2017-03-01] MEDS: PANTOPRAZOLE 40 MG TABLET.DR. PO SCH (08:59)
[2017-03-01] MEDS: POLYETHYLENE GLYCOL 3350 17 GM PACKET. PO SCH (08:59)
[2017-03-01] MEDS: NICOTINE 21MG PATCH. TD SCH (08:59)
[2017-03-01] MEDS: LISINOPRIL 20 MG TABLET PO SCH (09:00)
[2017-03-01] MEDS: HYDROcodone/APAP 5/325MG 1 TAB TABLET PO PRN ×2 (09:14→13:50)
[2017-03-01 11:00] VITALS: BP 135/78
--- NOTE | 2017-03-01 12:27 | PDOC ---
PROGRESS NOTES Chief Complaint Chief Complaint 1. Tubilovillous Sigmoid polyp post sigmoidcolectomy 2. HTN 3. constipation plan: fu with sx, on gi soft diet, waiting for BM. advise pt to ambulate when tolerate increase lisinopril to 40mg daily, hydralazine prn on prum juice for constipation. added more stool softner dc soon as per sx. thanks for asking IPC for consult History of Present Illness History of Present Illness pt upset about no BM and abd pain, asking for pain meds no N/V Vitals Vitals Vital Signs Date Time Temp Pulse Resp B/P (MAP) Pulse Ox O2 Delivery O2 Flow Rate FiO2 03/01/17 11:00 98.2 66 18 135/78 (97) 92 Room Air 98.2 Physical Exam General: Alert, Oriented X3, Cooperative Heart: Regular rate, Normal S1, Normal S2 Abdomen: Normal bowel sounds, Soft, Other (clean sx wound, mild tenderness) Extremities: No clubbing, No cyanosis Skin: No rashes Labs LABS Laboratory Tests Test 03/01/17 04:15 White Blood Count 8.8 x10^3/uL (4.0-11.0) Red Blood Count 4.24 x10^6/uL (3.50-5.40) Hemoglobin 14.4 g/dL (12.0-15.5) Hematocrit 42.7 % (36.0-47.0) Mean Corpuscular Volume 101 fL (79-100) Mean Corpuscular Hemoglobin 34 pg (25-35) Mean Corpuscular Hemoglobin Concent 34 g/dL (31-37) Red Cell Distribution Width 12.2 % (11.5-14.5) Platelet Count 229 x10^3/uL (140-400) Neutrophils (%) (Auto) 57 % (31-73) Lymphocytes (%) (Auto) 29 % (24-48) Monocytes (%) (Auto) 9 % (0-9) Eosinophils (%) (Auto) 4 % (0-3) Basophils (%) (Auto) 1 % (0-3) Neutrophils # (Auto) 5.0 x10^3uL (1.8-7.7) Lymphocytes # (Auto) 2.6 x10^3/uL (1.0-4.8) Monocytes # (Auto) 0.8 x10^3/uL (0.0-1.1) Eosinophils # (Auto) 0.4 x10^3/uL (0.0-0.7) Basophils # (Auto) 0.1 x10^3/uL (0.0-0.2) Sodium Level 135 mmol/L (136-145) Potassium Level 4.4 mmol/L (3.5-5.1) Chloride Level 100 mmol/L (98-107) Carbon Dioxide Level 26 mmol/L (21-32) Anion Gap 9 (6-14) Blood Urea Nitrogen 8 mg/dL (7-20) Creatinine 0.8 mg/dL (0.6-1.0) Estimated GFR (Cockcroft-Gault) 75.0 Glucose Level 82 mg/dL (70-99) Calcium Level 8.8 mg/dL (8.5-10.1) Review of Systems Review of Systems no fever, chills, sob or chest pain Comment Review of Relevant I have reviewed the following items cesar (where applicable) has been applied. Labs Laboratory Tests Test 03/01/17 04:15 White Blood Count 8.8 x10^3/uL (4.0-11.0) Red Blood Count 4.24 x10^6/uL (3.50-5.40) Hemoglobin 14.4 g/dL (12.0-15.5) Hematocrit 42.7 % (36.0-47.0) Mean Corpuscular Volume 101 fL (79-100) Mean Corpuscular Hemoglobin 34 pg (25-35) Mean Corpuscular Hemoglobin Concent 34 g/dL (31-37) Red Cell Distribution Width 12.2 % (11.5-14.5) Platelet Count 229 x10^3/uL (140-400) Neutrophils (%) (Auto) 57 % (31-73) Lymphocytes (%) (Auto) 29 % (24-48) Monocytes (%) (Auto) 9 % (0-9) Eosinophils (%) (Auto) 4 % (0-3) Basophils (%) (Auto) 1 % (0-3) Neutrophils # (Auto) 5.0 x10^3uL (1.8-7.7) Lymphocytes # (Auto) 2.6 x10^3/uL (1.0-4.8) Monocytes # (Auto) 0.8 x10^3/uL (0.0-1.1) Eosinophils # (Auto) 0.4 x10^3/uL (0.0-0.7) Basophils # (Auto) 0.1 x10^3/uL (0.0-0.2) Sodium Level 135 mmol/L (136-145) Potassium Level 4.4 mmol/L (3.5-5.1) Chloride Level 100 mmol/L (98-107) Carbon Dioxide Level 26 mmol/L (21-32) Anion Gap 9 (6-14) Blood Urea Nitrogen 8 mg/dL (7-20) Creatinine 0.8 mg/dL (0.6-1.0) Estimated GFR (Cockcroft-Gault) 75.0 Glucose Level 82 mg/dL (70-99) Calcium Level 8.8 mg/dL (8.5-10.1) Laboratory Tests Test 03/01/17 04:15 White Blood Count 8.8 x10^3/uL (4.0-11.0) Red Blood Count 4.24 x10^6/uL (3.50-5.40) Hemoglobin 14.4 g/dL (12.0-15.5) Hematocrit 42.7 % (36.0-47.0) Mean Corpuscular Volume 101 fL (79-100) Mean Corpuscular Hemoglobin 34 pg (25-35) Mean Corpuscular Hemoglobin Concent 34 g/dL (31-37) Red Cell Distribution Width 12.2 % (11.5-14.5) Platelet Count 229 x10^3/uL (140-400) Neutrophils (%) (Auto) 57 % (31-73) Lymphocytes (%) (Auto) 29 % (24-48) Monocytes (%) (Auto) 9 % (0-9) Eosinophils (%) (Auto) 4 % (0-3) Basophils (%) (Auto) 1 % (0-3) Neutrophils # (Auto) 5.0 x10^3uL (1.8-7.7) Lymphocytes # (Auto) 2.6 x10^3/uL (1.0-4.8) Monocytes # (Auto) 0.8 x10^3/uL (0.0-1.1) Eosinophils # (Auto) 0.4 x10^3/uL (0.0-0.7) Basophils # (Auto) 0.1 x10^3/uL (0.0-0.2) Sodium Level 135 mmol/L (136-145) Potassium Level 4.4 mmol/L (3.5-5.1) Chloride Level 100 mmol/L (98-107) Carbon Dioxide Level 26 mmol/L (21-32) Anion Gap 9 (6-14) Blood Urea Nitrogen 8 mg/dL (7-20) Creatinine 0.8 mg/dL (0.6-1.0) Estimated GFR (Cockcroft-Gault) 75.0 Glucose Level 82 mg/dL (70-99) Calcium Level 8.8 mg/dL (8.5-10.1) Medications Current Medications Ondansetron HCl (Zofran) 4 mg PRN Q6HRS PRN IV NAUSEA/VOMITING; Start 02/24/17 at 07:00; Stop 02/25/17 at 06:59; Status DC Fentanyl Citrate (Fentanyl 2ml Vial) 25 mcg PRN Q5MIN PRN IV MILD PAIN; Start 02/24/17 at 07:00; Stop 02/25/17 at 06:59; Status DC Fentanyl Citrate (Fentanyl 2ml Vial) 50 mcg PRN Q5MIN PRN IV MODERATE PAIN Last administered on 02/24/17 11:16; Start 02/24/17 at 07:00; Stop 02/25/17 at 06: 59; Status DC Morphine Sulfate 1 mg PRN Q10MIN PRN IV SEVERE PAIN; Start 02/24/17 at 07:00; Stop 02/25/17 at 06:59; Status DC Ringer's Solution 1,000 ml @ 0 mls/hr Q0M IV Last administered on 02/24/17 07: 20; Start 02/24/17 at 07:00; Stop 02/24/17 at 18:59; Status DC Lidocaine HCl 2 ml PRN 1X PRN ID PRIOR TO IV START; Start 02/24/17 at 07:00; Stop 02/25/17 at 06:59; Status DC Hydromorphone HCl (Dilaudid) 0.5 mg PRN Q10MIN PRN IV SEV PAIN, Second choice Last administered on 02/24/17 11:01; Start 02/24/17 at 07:00; Stop 02/25/17 at 06: 59; Status DC Prochlorperazine Edisylate (Compazine) 5 mg PACU PRN PRN IV NAUSEA, MRX1; Start 02/24/17 at 07:00; Stop 02/25/17 at 06:59; Status DC Cefazolin Sodium/ Dextrose 50 ml @ 100 mls/hr 1X ONCE IV Last administered on 02/24/17t 08:25; Start 02/24/17 at 07:00; Stop 02/24/17 at 07:29; Status DC Dexamethasone Sodium Phosphate (Decadron) 20 mg STK-MED ONCE .ROUTE ; Start 02/24 at 07:59; Stop 02/24/17 at 08:00; Status DC Ondansetron HCl (Zofran) 4 mg STK-MED ONCE .ROUTE ; Start 02/24/17 at 07:59; Stop 02/24/17 at 08:00; Status DC Propofol 20 ml @ As Directed STK-MED ONCE IV ; Start 02/24/17 at 07:59; Stop 02/24 at 08:00; Status DC Lidocaine HCl (Lidocaine Pf 2% Vial) 5 ml STK-MED ONCE .ROUTE ; Start 02/24/17 at 07:59; Stop 02/24/17 at 08:00; Status DC Fentanyl Citrate (Fentanyl 2ml Vial) 100 mcg STK-MED ONCE .ROUTE ; Start at 07:59; Stop 02/24/17 at 08:00; Status DC Midazolam HCl (Versed) 2 mg STK-MED ONCE .ROUTE ; Start 02/24/17 at 08:00; Stop 02/24/17 at 08:01; Status DC Ketamine HCl 500 mg STK-MED ONCE .ROUTE ; Start 02/24/17 at 08:00; Stop 02/24/17 at 08:01; Status DC Rocuronium Mcgraws (Zemuron) 50 mg STK-MED ONCE .ROUTE ; Start 02/24/17 at 08:00 ; Stop 02/24/17 at 08:01; Status DC Glycopyrrolate (Robinul) 1 mg STK-MED ONCE .ROUTE ; Start 02/24/17 at 08:03; Stop 02/24/17 at 08:04; Status DC Desflurane (Suprane) 90 ml STK-MED ONCE IH ; Start 02/24/17 at 08:21; Stop at 08:22; Status DC Fentanyl Citrate (Fentanyl 2ml Vial) 100 mcg STK-MED ONCE .ROUTE ; Start at 09:49; Stop 02/24/17 at 09:50; Status DC Neostigmine Methylsulfate 5 mg STK-MED ONCE .ROUTE ; Start 02/24/17 at 09:52; Stop 02/24/17 at 09:53; Status DC Sodium Chloride (Normal Saline Flush) 3 ml QSHIFT PRN IV AFTER MEDS AND BLOOD DRAWS; Start 02/24/17 at 10:15 Morphine Sulfate 2 mg PRN Q3HRS PRN IV PAIN Last administered on 02/24/17 22:37 ; Start 02/24/17 at 10:15 Oxycodone/ Acetaminophen (Percocet 5/325) 1 tab PRN Q4HRS PRN PO MILD PAIN, 1ST CHOICE Last administered on 02/26/17 08:51; Start 02/24/17 at 10:15; Stop at 07:32; Status DC Oxycodone/ Acetaminophen (Percocet 5/325) 2 tab PRN Q4HRS PRN PO MODERATE PAIN , SEVERE PAIN Last administered on 02/26/17 18:04; Start 02/24/17 at 10:15; Stop 02/27/17 at 07:32; Status DC Ketorolac Tromethamine (Toradol) 15 mg Q6HRS IV Last administered on 02/26/17 05:46; Start 02/24/17 at 12:00; Stop 02/26/17 at 11:59; Status DC Ondansetron HCl (Zofran) 4 mg PRN Q6HRS PRN IV NAUSEA; Start 02/24/17 at 10:15 Dextrose/Lactated Ringer's 1,000 ml @ 75 mls/hr [id number] IV Last administered on 02/26/17 03:18; Start 02/24/17 at 10:01; Stop 02/26/17 at 09:11; Status DC Nicotine (Nicoderm Cq 21mg) 1 patch DAILY TD Last administered on 03/01/17 08: 59; Start 02/24/17 at 12:00 Glycopyrrolate (Robinul) 1 mg STK-MED ONCE .ROUTE ; Start 02/24/17 at 11:36; Stop 02/24/17 at 11:37; Status DC Neostigmine Methylsulfate 5 mg STK-MED ONCE .ROUTE ; Start 02/24/17 at 11:36; Stop 02/24/17 at 11:37; Status DC Lisinopril (Prinivil) 20 mg DAILY PO Last administered on 02/27/17 08:42; Start 02/24/17 at 14:00; Stop 02/28/17 at 09:54; Status DC Acetaminophen/ Hydrocodone Bitart (Lortab 5/325) 1 tab PRN Q4HRS PRN PO MODERATE PAIN Last administered on 02/28/17 18:31; Start 02/26/17 at 22:30 Acetaminophen/ Hydrocodone Bitart (Lortab 5/325) 2 tab PRN Q4HRS PRN PO SEVERE PAIN Last administered on 03/01/17 09:14; Start 02/26/17 at 22:30 Calcium Carbonate/ Glycine (Tums) 250 mg PRN Q2HRS PRN PO INDIGESTION Last administered on 02/27/17 18:44; Start 02/27/17 at 18:45; Stop 02/27/17 at 18:47 ; Status DC Pantoprazole Sodium (Protonix) 40 mg DAILY PO Last administered on 03/01/17 08 :59; Start 02/28/17 at 09:00 Calcium Carbonate/ Glycine (Tums) 500 mg PRN Q2HRS PRN PO INDIGESTION; Start at 19:00 Lisinopril (Prinivil) 10 mg 1X ONCE PO Last administered on 02/27/17 21:34; Start 02/27/17 at 21:15; Stop 02/27/17 at 21:16; Status DC Lisinopril (Prinivil) 40 mg DAILY PO Last administered on 03/01/17 09:00; Start 02/28/17 at 10:30 Hydralazine HCl (Apresoline) 10 mg PRN Q4HRS PRN IVP ELEVATED BP, SEE COMMENTS ; Start 02/28/17 at 10:00; Stop 02/28/17 at 12:51; Status DC Polyethylene Glycol (miraLAX PACKET) 17 gm DAILY PO Last administered on 08:59; Start 02/28/17 at 10:30 Hydralazine HCl (Apresoline) 10 mg PRN Q4HRS PRN IVP ELEVATED BP, SEE COMMENTS ; Start 02/28/17 at 13:00 Docusate Sodium (Colace) 100 mg PRN DAILY PRN PO CONSTIPATION Last administered on 02/28/17 18:31; Start 02/28/17 at 18:00; Stop 02/28/17 at 21:44 ; Status DC Docusate Sodium (Colace) 100 mg PRN BID PRN PO CONSTIPATION Last administered on 03/01/17 09:14; Start 03/01/17 at 18:00 Polyethylene Glycol (miraLAX PACKET) 17 gm PRN BID PRN PO CONSTIPATION Last administered on 03/01/17 00:56; Start 02/28/17 at 21:45 Magnesium Hydroxide (Milk Of Magnesia) 2,400 mg PRN DAILY PRN PO CONSTIPATION Last administered on 03/01/17 09:00; Start 02/28/17 at 21:45 Active Scripts Active Reported Ibuprofen 400 Mg Tablet 200 Mg PO PRN Q6HRS PRN Tums (Calcium Carbonate) 200 Mg Tab.chew 200 Mg PO PRN PRN Pantoprazole Sodium 40 Mg Tablet.dr 1 Tab PO DAILY Lisinopril 20 Mg Tablet 1 Tab PO DAILY Vitals/I & O Vital Sign - Last 24 Hours 02/28/17 02/28/17 02/28/17 02/28/17 14:29 15:00 18:31 19:00 Temp 98.1 97.9 98.1 97.9 Pulse 60 62 Resp 18 20 B/P (MAP) 152/83 (106) 183/97 (125) Pulse Ox 96 95 O2 Delivery Room Air Room Air Room Air Room Air 02/28/17 02/28/17 02/28/17 02/28/17 20:45 20:55 22:37 22:59 Temp 97.7 97.7 Pulse 61 Resp 18 18 18 B/P (MAP) 175/112 (133) Pulse Ox 95 95 98 O2 Delivery Room Air Room Air Room Air Room Air 02/28/17 03/01/17 03/01/17 03/01/17 23:40 03:00 07:00 09:00 Temp 97.7 97.9 97.7 97.9 Pulse 59 61 61 Resp 16 18 B/P (MAP) 178/98 (124) 145/84 (104) 145/84 Pulse Ox 98 98 95 O2 Delivery Room Air Room Air 03/01/17 03/01/17 03/01/17 09:14 10:14 11:00 Temp 98.2 98.2 Pulse 66 Resp 16 16 18 B/P (MAP) 135/78 (97) Pulse Ox 92 O2 Delivery Room Air Room Air Room Air Intake and Output 02/28/17 02/28/17 03/01/17 15:00 23:00 07:00 Intake Total 500 ml 1900 ml Output Total 700 ml 400 ml Balance -200 ml 1500 ml SUZANNE SHETTY MD Mar 01, 2017 12:27
--- NOTE | 2017-03-01 13:16 | PDOC ---
SURGICAL PROGRESS NOTE Subjective + flatus no stool yet, tolerating diet dr tse this earlier Vital Signs Vital Signs Date Time Temp Pulse Resp B/P (MAP) Pulse Ox O2 Delivery O2 Flow Rate FiO2 03/01/17 11:00 98.2 66 18 135/78 (97) 92 Room Air 98.2 I&O Intake and Output 03/01/17 07:00 Intake Total 2400 ml Output Total 1100 ml Balance 1300 ml Intake Oral 2400 ml Output Urine Total 1100 ml # Voids 4 General: Alert, Oriented X3, Cooperative, No acute distress Abdomen: Soft, Other (incision c/d/i, no erythema, tenderness to RLQ) Labs Laboratory Tests Test 03/01/17 04:15 White Blood Count 8.8 x10^3/uL (4.0-11.0) Red Blood Count 4.24 x10^6/uL (3.50-5.40) Hemoglobin 14.4 g/dL (12.0-15.5) Hematocrit 42.7 % (36.0-47.0) Mean Corpuscular Volume 101 fL (79-100) Mean Corpuscular Hemoglobin 34 pg (25-35) Mean Corpuscular Hemoglobin Concent 34 g/dL (31-37) Red Cell Distribution Width 12.2 % (11.5-14.5) Platelet Count 229 x10^3/uL (140-400) Neutrophils (%) (Auto) 57 % (31-73) Lymphocytes (%) (Auto) 29 % (24-48) Monocytes (%) (Auto) 9 % (0-9) Eosinophils (%) (Auto) 4 % (0-3) Basophils (%) (Auto) 1 % (0-3) Neutrophils # (Auto) 5.0 x10^3uL (1.8-7.7) Lymphocytes # (Auto) 2.6 x10^3/uL (1.0-4.8) Monocytes # (Auto) 0.8 x10^3/uL (0.0-1.1) Eosinophils # (Auto) 0.4 x10^3/uL (0.0-0.7) Basophils # (Auto) 0.1 x10^3/uL (0.0-0.2) Sodium Level 135 mmol/L (136-145) Potassium Level 4.4 mmol/L (3.5-5.1) Chloride Level 100 mmol/L (98-107) Carbon Dioxide Level 26 mmol/L (21-32) Anion Gap 9 (6-14) Blood Urea Nitrogen 8 mg/dL (7-20) Creatinine 0.8 mg/dL (0.6-1.0) Estimated GFR (Cockcroft-Gault) 75.0 Glucose Level 82 mg/dL (70-99) Calcium Level 8.8 mg/dL (8.5-10.1) Laboratory Tests Test 03/01/17 04:15 White Blood Count 8.8 x10^3/uL (4.0-11.0) Red Blood Count 4.24 x10^6/uL (3.50-5.40) Hemoglobin 14.4 g/dL (12.0-15.5) Hematocrit 42.7 % (36.0-47.0) Mean Corpuscular Volume 101 fL (79-100) Mean Corpuscular Hemoglobin 34 pg (25-35) Mean Corpuscular Hemoglobin Concent 34 g/dL (31-37) Red Cell Distribution Width 12.2 % (11.5-14.5) Platelet Count 229 x10^3/uL (140-400) Neutrophils (%) (Auto) 57 % (31-73) Lymphocytes (%) (Auto) 29 % (24-48) Monocytes (%) (Auto) 9 % (0-9) Eosinophils (%) (Auto) 4 % (0-3) Basophils (%) (Auto) 1 % (0-3) Neutrophils # (Auto) 5.0 x10^3uL (1.8-7.7) Lymphocytes # (Auto) 2.6 x10^3/uL (1.0-4.8) Monocytes # (Auto) 0.8 x10^3/uL (0.0-1.1) Eosinophils # (Auto) 0.4 x10^3/uL (0.0-0.7) Basophils # (Auto) 0.1 x10^3/uL (0.0-0.2) Sodium Level 135 mmol/L (136-145) Potassium Level 4.4 mmol/L (3.5-5.1) Chloride Level 100 mmol/L (98-107) Carbon Dioxide Level 26 mmol/L (21-32) Anion Gap 9 (6-14) Blood Urea Nitrogen 8 mg/dL (7-20) Creatinine 0.8 mg/dL (0.6-1.0) Estimated GFR (Cockcroft-Gault) 75.0 Glucose Level 82 mg/dL (70-99) Calcium Level 8.8 mg/dL (8.5-10.1) Problem List s/p resection dc home Problems: JOHN CASTELLON APRN Mar 01, 2017 13:16
[2017-03-01] MEDS ORDERED: HYDR-2758 PO ×2 (13:26→14:10)
[2017-03-01] MEDS ORDERED: POLY17PO3 PO (13:26)
[2017-03-01] MEDS ORDERED: DOCU-109 PO (13:26)
[2017-03-01] MEDS ORDERED: POLY2500 PO (14:10)
[2017-03-01] MEDS ORDERED: DOCU100C28 PO (14:10)
[2017-03-01 15:00] VITALS: BP 152/99
[2017-03-01] MEDS ORDERED: DOCUSATE SODIUM 100 MG CAPSULE. PO PRN (18:00)
--- NOTE | 2017-03-03 13:55 | PDOC3 ---
Discharge Summary* Date of Admission: Feb 24, 2017 Date of Discharge: Mar 01, 2017 Admitting Diagnosis sigmoid tubulovillous adenoma Final Diagnosis sigmoid tubulovillous adenoma CONSULTS IPC, medical management Procedures sigmoid colectomy Brief Hospital Course Ms. Jones is a 52 old female who presented with tubulovillous adenoma, underwent the above procedure. Postoperatively bowel function slow to return, she developed some ongoing hypertension, which was managed by the vice president diversity. At discharge she was having flatus and tolerating a regular diet. Her pain was adequately controlled Disposition/Orders: D/C to Home CONDITION AT DISCHARGE: Stable Diet: Regular Scheduled Docusate Sodium (Docusate Sodium), 1 CAP PO DAILY, (Reported) Lisinopril (Lisinopril), 1 TAB PO DAILY, (Reported) Pantoprazole Sodium (Pantoprazole Sodium), 1 TAB PO DAILY, (Reported) Polyethylene Glycol 3350 (Polyethylene Glycol 3350), 17 GM PO DAILY, (Reported) Scheduled PRN Calcium Carbonate (Tums), 200 MG PO PRN PRN for INDIGESTION, (Reported) Hydrocodone Bit/Acetaminophen (Hydrocodone-Apap 5-325 ), 1-2 TAB PO PRN Q4- 6HRS PRN for PAIN, (Reported) Ibuprofen (Ibuprofen), 200 MG PO PRN Q6HRS PRN for INFLAMMATION, (Reported) FOLLOW UP APPOINTMENT: 2 weeks Time Spent Total time spent with patient [] minutes for coordination of care, counseling, and education. JOHN CASTELLON PHOTO OFFSET PRINTER Mar 03, 2017 13:55
--- NOTE | 2017-03-08 22:58 | OP ---
DATE OF SURGERY: 02/24/2017 PREOPERATIVE DIAGNOSIS: Sigmoid tubulovillous polyp. POSTOPERATIVE DIAGNOSIS: Sigmoid tubulovillous polyp. PROCEDURE: Sigmoid colectomy. SURGEON: Alan Gardner MD. CHANGE CONTROL MANAGER: Kristi Cameron MD INDICATIONS: The patient is a 52-year-old female who underwent a screening colonoscopy, was found to have a large tubulovillous polyp in the sigmoid colon, which was too large to remove endoscopically. Biopsies of this polyp were benign. Procedure of sigmoid colectomy was explained to the patient in detail. Risks and benefits were also discussed including bleeding, infection, alternatives of this procedure were also discussed with the patient who seemed to understand and gave verbal and written consent to have the procedure performed. DESCRIPTION OF PROCEDURE: The patient was taken to the operating room and placed in the supine position, general anesthesia was initiated. Once the patient was asleep and intubated, her abdomen was prepped and draped in usual sterile fashion using ChloraPrep. A midline incision was made from just below the umbilicus to the pubic symphysis with a 10 blade scalpel, this was carried down through the subcutaneous tissue with electrocautery for hemostasis down to the fascia. Fascia was opened with Metzenbaum scissors and further opened with electrocautery. The abdomen was inspected, no other abnormalities were noted. It was noted that there was a tattoo portion of the sigmoid colon about mid sigmoid. The sigmoid colon was freed up from the left abdominal wall along the white line of Toldt using electrocautery. A window was made in the mesentery proximally and distally to the tattooed portion of the sigmoid colon and a HERNESTO stapler was used to staple and transect the sigmoid colon. The mesentery was taken down with impact LigaSure and sent to the pathologist. The proximal and distal ends of the sigmoid colon were brought together and primary anastomosis was completed with suturing technique, posterior layer was silk Lembert, the inner layer was a running 3-0 Vicryl interlocking suture and the anterior portion of the anastomosis was again silk Lembert. Colon was returned to the abdomen. Abdomen was irrigated with copious volumes of normal saline and suctioned dry. The fascia was then closed with a running looped #1 PDS and the skin was reapproximated with 4-0 subcuticular Monocryl. Mastisol, Steri-Strips, 4 x 4's and Medipore tape were applied as dressing. The patient was awakened, extubated in the operating room, taken to recovery in stable condition. All sponge, instrument counts listed as correct. Estimated blood loss 30 mL. ALAN GARDNER MD DR: ELIANA/april JOB#: [id number] / [id number]
== END 2017-03-01 15:40 | disposition home or self-care (01) | DRG 330 ==
LOC: OPSVCIP 06:53 → 4 NORTH 11:57
PROVIDERS: ADMIT Surgery; ATTEND Surgery
PROC: 0DTN0ZZ Resection of Sigmoid Colon, Open Approach (ICD-10-PCS; principal; 2017-02-24 08:30)
DX: D12.5 Benign neoplasm of sigmoid colon (principal); R65.10 Systemic inflammatory response syndrome (SIRS) of non-infectious origin without acute organ dysfunction; K59.00 Constipation, unspecified; I10 Essential (primary) hypertension; F41.9 Anxiety disorder, unspecified; D37.4 Neoplasm of uncertain behavior of colon; Z90.49 Acquired absence of other specified parts of digestive tract; Z79.899 Other long term (current) drug therapy; Z79.1 Long term (current) use of non-steroidal anti-inflammatories (NSAID)
CPT/HCPCS: 36415; 76705; 80048; 85027; 88309; J0690; J1100; J1170; J1885; J2250; J2270; J2405; J2704; J2710; J3010; J3490; J7120